=== PATIENT | male | born 1935 | race Native Hawaiian/Other Pacific Islander ===

== ENCOUNTER 2016-04-13 19:16 | Inpatient (IN) | payer OTHER ==
[~2016-04-13] VITALS: Ht 185.4 cm; Wt 77.1 kg
[~2016-04-13 19:16] MED LIST: ASPIRIN81 M1 PO; BENICAR20 MG PO; CEFUROXIME500 MG OR; CRESTOR20 MG PO; FOSI20TA2 PO; LEVAQUIN750 MG OR; METO50TA63 PO; VITAMIN D1000 UNI1 PO
[2016-04-13 19:22] VITALS: BP 185/90; TEMP 97.9
[2016-04-13 20:17] LABS: PLATELET COUNT 195 K/uL (142-355)
[2016-04-13 20:25] LABS: POTASSIUM 3.2 mmol/L (3.6-5.2); SODIUM 135 mmol/L (136-145)
[2016-04-13 22:15] VITALS: BP 172/87
[2016-04-13 23:39] VITALS: BP 188/78; TEMP 97.8; Ht 185.4 cm; Wt 77.1 kg
[2016-04-14] VITALS: BP 160/84; TEMP 97.7
[2016-04-14 03:33] LABS: PLATELET COUNT 174 K/uL (142-355)
[2016-04-14 04:00] VITALS: BP 177/86; TEMP 97.8
--- NOTE | 2016-04-14 07:12 | NUR ---
04/14/16 0655 PT C/O OF SHARP PAIN IN LEFT CHEST AREA RATED 6 ON SCALE 1- 10.V/S 161/77 67.RESP HERE TO DO EKG.MORPHINE 2MG SIVP GIVEN.CC 04/14/[address] GAONA NOTIFIED OF PT C/O OF CHEST PAIN AND EKG IS ABOUT THE SAME ON ADMISSION.NO NEW ORDERS .CC
[2016-04-14 07:25] VITALS: BP 168/81; TEMP 97.6
--- NOTE | 2016-04-14 07:25 | NUR ---
04/14/16 6793 PT STATES HIS PAIN IS GONE NAD NOTED.TOLD PT TO CALL IF HE HAS ANY FURTHER PAIN OR DISCOMFORT.PT VERBALIZED UNDERSTANDING.CC
[2016-04-14 12:00] VITALS: BP 158/74; TEMP 97.6
[2016-04-14 16:29] VITALS: BP 157/74; TEMP 98.6
[2016-04-14 20:00] VITALS: BP 138/77; TEMP 98.6
--- NOTE | 2016-04-14 20:16 | NUR ---
04/14/162009 FAMILY PRESENT IN ROOM NO C/O VOICED.CC
[2016-04-15] VITALS: BP 122/74; TEMP 98.1
[2016-04-15 04:00] VITALS: BP 157/80; TEMP 98.5
[2016-04-15 06:16] LABS: POTASSIUM 3.5 mmol/L (3.6-5.2)
[2016-04-15 06:19] LABS: PLATELET COUNT 176 K/uL (142-355)
[2016-04-15 08:00] VITALS: BP 162/60; TEMP 98.2
[2016-04-15 12:00] VITALS: BP 159/79; TEMP 98.7
[2016-04-15 16:00] VITALS: BP 158/76; TEMP 98.4
[2016-04-15 20:00] VITALS: BP 169/73; TEMP 98.2
[2016-04-16] VITALS: BP 156/78; TEMP 98.2
[2016-04-16 04:00] VITALS: BP 178/82; TEMP 98.1
[2016-04-16 08:00] VITALS: BP 160/80; TEMP 98
[2016-04-16 08:23] LABS: POTASSIUM 3.8 mmol/L (3.6-5.2)
[2016-04-16 08:45] LABS: PLATELET COUNT 193 K/uL (142-355)
[2016-04-16 12:02] VITALS: BP 177/85; TEMP 98.1
--- NOTE | 2016-04-16 12:48 | NUR ---
D/C INSTRUCTIONS GIVEN TO PT AND HE VERBALIZES UNDERSTANDING. PTS GRANDDAUGHTER HERE TO GET PT. PT OUT VIA W/C PER NURSING STUDENTS WITH NAD.
== END 2016-04-16 13:00 | disposition home or self-care (01) | DRG 562 ==
LOC: ED 19:16 → MED/SURG 21:45
PROVIDERS: Emergency Medicine; ADMIT Family Medicine
DX: S29.011A Strain of muscle and tendon of front wall of thorax, initial encounter (principal); J18.1 Lobar pneumonia, unspecified organism; R07.1 Chest pain on breathing; I10 Essential (primary) hypertension; J44.9 Chronic obstructive pulmonary disease, unspecified; K21.9 Gastro-esophageal reflux disease without esophagitis; N18.3 Chronic kidney disease, stage 3 (moderate); N20.0 Calculus of kidney
CPT/HCPCS: 36415; 80048; 80053; 81000; 84484; 85027; 93005; 94640; 94664; 94760; 96367; 96372; 96375; 99283; J1650; J2270

== ENCOUNTER 2016-06-22 13:38 | Observation (INO) | payer OTHER ==
[~2016-06-22] VITALS: Ht 185.4 cm; Wt 74.0 kg
[2016-06-22 13:50] VITALS: BP 188/85; TEMP 98.1
[2016-06-22 15:23] LABS: PLATELET COUNT 245 K/uL (142-355)
[2016-06-22 15:52] LABS: POTASSIUM 3.8 mmol/L (3.6-5.2); SODIUM 138 mmol/L (136-145)
[2016-06-22 16:50] VITALS: BP 174/76
[2016-06-22 17:00] VITALS: BP 162/68
[2016-06-22 18:00] VITALS: BP 161/77
[2016-06-22 19:30] VITALS: BP 133/90; TEMP 98
[2016-06-22 22:22] VITALS: BP 152/79; TEMP 98.3; Ht 185.4 cm; Wt 74.0 kg
[2016-06-23 00:20] VITALS: BP 134/65; TEMP 98
[2016-06-23 04:00] VITALS: BP 129/69; TEMP 98.1
[2016-06-23 05:20] LABS: PLATELET COUNT 208 K/uL (142-355)
[2016-06-23 05:43] LABS: POTASSIUM 3.8 mmol/L (3.6-5.2)
[2016-06-23 08:13] VITALS: BP 171/79; TEMP 98.1
[2016-06-23 12:00] VITALS: BP 118/77; BP 133/82; TEMP 98; TEMP 98.3
[2016-06-23 16:00] VITALS: BP 179/89; TEMP 98.5
--- NOTE | 2016-06-23 18:03 | NUR ---
1800 PT LEFT VIA WC WITH FAMILY. NO ACUTE DISTRESS NOTED.
== END 2016-06-23 18:03 | disposition home or self-care (01) ==
LOC: ED 13:38 → MED/SURG 19:47
PROVIDERS: Specialist; ADMIT Emergency Medicine
DX: G25.2 Other specified forms of tremor (principal); E86.0 Dehydration; I25.10 Atherosclerotic heart disease of native coronary artery without angina pectoris; J44.9 Chronic obstructive pulmonary disease, unspecified; I13.10 Hypertensive heart and chronic kidney disease without heart failure, with stage 1 through stage 4 chronic kidney disease, or unspecified chronic kidney disease; N18.3 Chronic kidney disease, stage 3 (moderate); R53.1 Weakness; F41.8 Other specified anxiety disorders; R07.89 Other chest pain; R42 Dizziness and giddiness
CPT/HCPCS: 36415; 36600; 80053; 81000; 82550; 82553; 82805; 83735; 84100; 84484; 85027; 85379; 85610; 85730; 93005; 96365; 96366; 96372; 99220; 99284; G0378; J1650; J1720; J3411; J3475; J3490

== ENCOUNTER 2017-03-11 17:54 | Emergency (ER) | payer OTHER ==
[~2017-03-11] VITALS: Ht 175.3 cm; Wt 75.8 kg
[2017-03-11 22:50] LABS: PLATELET COUNT 196 K/uL (142-355)
[2017-03-12 00:35] LABS: POTASSIUM 3.6 mmol/L (3.6-5.2)
[2017-03-12 01:25] VITALS: BP 164/77; TEMP 98.6
== END 2017-03-12 01:30 | disposition home or self-care (01) ==
LOC: ED 17:54
PROVIDERS: Specialist
DX: E86.9 Volume depletion, unspecified (principal); J11.1 Influenza due to unidentified influenza virus with other respiratory manifestations
CPT/HCPCS: 36415; 80053; 85027; 87804; 96365; 99284; J1720; J3411; J3475; J3490

== ENCOUNTER 2018-01-28 16:01 | Outpatient (CLI) | payer OTHER ==
[2018-01-28 16:30] LABS: PLATELET COUNT 205 K/uL (142-355)
[2018-01-28 16:38] LABS: POTASSIUM 2.8 mmol/L (3.6-5.2)
== END 2018-01-28 22:04 | disposition home or self-care (01) ==
LOC: LABW 16:01
PROVIDERS: Nurse Practitioner Family
DX: R21 Rash and other nonspecific skin eruption (principal)
CPT/HCPCS: 36415; 80053; 84630; 85027

== ENCOUNTER 2018-01-31 07:13 | Outpatient (CLI) | payer OTHER ==
[2018-01-31 08:21] LABS: POTASSIUM 3.3 mmol/L (3.6-5.2)
== END 2018-01-31 19:52 | disposition home or self-care (01) ==
LOC: LABW 07:13
PROVIDERS: Internal Medicine Cardiovascular Disease
DX: R21 Rash and other nonspecific skin eruption (principal); Z79.899 Other long term (current) drug therapy
CPT/HCPCS: 36415; 80048; 82943

== ENCOUNTER 2018-02-05 13:56 | Outpatient (CLI) | payer OTHER ==
[2018-02-05 14:24] LABS: POTASSIUM 3.6 mmol/L (3.6-5.2)
== END 2018-02-05 19:28 | disposition home or self-care (01) ==
LOC: LABW 13:56
PROVIDERS: Internal Medicine Cardiovascular Disease
DX: Z79.899 Other long term (current) drug therapy (principal)
CPT/HCPCS: 36415; 80048

== ENCOUNTER 2018-04-29 12:20 | Outpatient (CLI) | payer OTHER ==
[2018-04-29 12:58] LABS: PLATELET COUNT 206 K/uL (142-355)
[2018-04-29 13:05] LABS: POTASSIUM 4.9 mmol/L (3.6-5.2)
== END 2018-04-29 19:40 | disposition home or self-care (01) ==
LOC: LABW 12:20
PROVIDERS: Internal Medicine
DX: N18.4 Chronic kidney disease, stage 4 (severe) (principal)
CPT/HCPCS: 36415; 80053; 81000; 82043; 82306; 82330; 82570; 83735; 83970; 84100; 84155; 85027

== ENCOUNTER 2018-04-29 20:06 | Emergency (ER) | payer OTHER ==
[~2018-04-29] VITALS: Ht 175.3 cm; Wt 80.7 kg
[2018-04-29 22:01] VITALS: BP 138/76; TEMP 97.8
== END 2018-04-29 21:55 | disposition home or self-care (01) ==
LOC: ED 20:06
DX: E86.0 Dehydration (principal); N18.9 Chronic kidney disease, unspecified; R53.1 Weakness; R06.02 Shortness of breath; R42 Dizziness and giddiness
CPT/HCPCS: 36415; 93005; 96360; 99284

== ENCOUNTER 2018-06-26 09:46 | Outpatient (CLI) | payer OTHER | END 2018-06-26 23:10 | disposition home or self-care (01) | LOC: CT 09:46 | DX: R51 Headache (principal); I35.8 Other nonrheumatic aortic valve disorders | CPT/HCPCS: 93306 ==

== ENCOUNTER 2020-10-12 15:45 | Emergency (ER) | payer OTHER ==
[~2020-10-12] VITALS: Ht 182.9 cm; Wt 68.0 kg
[2020-10-12 15:55] VITALS: BP 135/56; TEMP 98.3
== END 2020-10-12 19:04 | disposition home or self-care (01) ==
LOC: ED 15:45
DX: R42 Dizziness and giddiness (principal); Z53.21 Procedure and treatment not carried out due to patient leaving prior to being seen by health care provider
CPT/HCPCS: 99281

== ENCOUNTER 2021-05-04 12:19 | Emergency (ER) | payer OTHER ==
[~2021-05-04] VITALS: Ht 182.9 cm; Wt 65.8 kg
[2021-05-04 12:34] LABS: PLATELET COUNT 243 K/uL (142-355)
[2021-05-04 16:21] VITALS: BP 137/61; TEMP 98.8
== END 2021-05-04 16:21 | disposition home or self-care (01) ==
LOC: ED 12:19
PROVIDERS: Emergency Medicine
DX: R42 Dizziness and giddiness (principal); I95.1 Orthostatic hypotension; Z91.81 History of falling; M16.0 Bilateral primary osteoarthritis of hip; W18.39XA Other fall on same level, initial encounter; Y92.89 Other specified places as the place of occurrence of the external cause
CPT/HCPCS: 80053; 82550; 84484; 85027; 93005; 96360; 99284

== ENCOUNTER 2021-08-11 00:46 | Observation (INO) | payer OTHER ==
[~2021-08-11] VITALS: Ht 185.4 cm; Wt 73.0 kg
[2021-08-11] VITALS (7 sets, daily range): BP systolic 136–168; BP diastolic 50–89; TEMP 97.8–98.8; Ht 185.4 cm; Wt 73.0 kg
[2021-08-11 01:21] LABS: PLATELET COUNT 258 K/uL (142-355)
[2021-08-11 01:31] LABS: POTASSIUM 3.9 mmol/L (3.6-5.2)
[2021-08-11 06:51] LABS: POTASSIUM 3.8 mmol/L (3.6-5.2)
[2021-08-11] MEDS ORDERED: VITAMIN D325 MCG PO (08:49)
[2021-08-11] MEDS ORDERED: OLMESARTAN MEDO20 MG PO (08:54)
[2021-08-11] MEDS ORDERED: ROSUVASTATIN CA40 MG PO (08:56)
[2021-08-11] MEDS ORDERED: FAMOTIDINE40 MG PO (08:57)
[2021-08-11] MEDS ORDERED: TIZANIDINE HYDRO4 M1 PO (08:58)
[2021-08-11] MEDS ORDERED: EUTHYROX50 MCG PO (08:59)
[2021-08-11] MEDS ORDERED: MEGESTROL AC40 MG PO (09:03)
[2021-08-11] MEDS ORDERED: MECLIZINE25 MG PO (09:05)
[2021-08-11] MEDS ORDERED: FUROSEMIDE20 MG PO (09:05)
[2021-08-11] MEDS ORDERED: SERTRALINE HYD100 MG PO (09:08)
[2021-08-11] MEDS ORDERED: ALPR0.5T24 PO (09:10)
[2021-08-12 04:00] VITALS: BP 137/58; TEMP 98.3
[2021-08-12 05:00] LABS: PLATELET COUNT 208 K/uL (142-355)
[2021-08-12 05:13] LABS: POTASSIUM 3.8 mmol/L (3.6-5.2)
[2021-08-12 08:00] VITALS: BP 135/65; TEMP 99.4
[2021-08-12 12:00] VITALS: BP 109/39; TEMP 98.6
[2021-08-12 16:00] VITALS: BP 123/51; TEMP 98.7
[2021-08-12 20:00] VITALS: BP 132/53; TEMP 98.8
[2021-08-13] VITALS: BP 120/45; TEMP 98.7
[2021-08-13 04:00] VITALS: BP 151/71; TEMP 99.3
[2021-08-13 08:00] VITALS: BP 144/63; TEMP 97.9
[2021-08-13 11:39] VITALS: BP 117/67; TEMP 98.8
[2021-08-13 15:45] VITALS: BP 167/71; TEMP 98.7
[2021-08-13 19:28] VITALS: BP 148/63; TEMP 97.9
[2021-08-14] VITALS: BP 143/71; TEMP 97.5
[2021-08-14 04:00] VITALS: BP 96/36; TEMP 97.7
[2021-08-14 08:00] VITALS: BP 120/63; TEMP 98
== END 2021-08-14 12:15 | disposition home health service (06) ==
LOC: ED 00:46 → MED/SURG 03:00
PROVIDERS: ADMIT Emergency Medicine; ATTEND Internal Medicine
DX: N17.8 Other acute kidney failure (principal); F41.8 Other specified anxiety disorders; G25.2 Other specified forms of tremor; J44.9 Chronic obstructive pulmonary disease, unspecified; I25.10 Atherosclerotic heart disease of native coronary artery without angina pectoris; D64.89 Other specified anemias; I12.9 Hypertensive chronic kidney disease with stage 1 through stage 4 chronic kidney disease, or unspecified chronic kidney disease; N18.30 Chronic kidney disease, stage 3 unspecified; E03.8 Other specified hypothyroidism; E55.9 Vitamin D deficiency, unspecified
CPT/HCPCS: 36415; 80048; 80053; 83605; 84484; 85027; 87635; 93005; 96360; 96361; 96365; 96374; 99220; 99284; G0378; J2060; U0003

== ENCOUNTER 2022-05-23 19:58 | Emergency (ER) | payer OTHER ==
[~2022-05-23 19:58] MED LIST changes: +ALPR0.5T24 PO; +EUTHYROX50 MCG PO; +FAMOTIDINE40 MG PO; +FUROSEMIDE20 MG PO; +MECLIZINE25 MG PO; +MEGESTROL AC40 MG PO; +OLMESARTAN MEDO20 MG PO; +ROSUVASTATIN CA40 MG PO; +SERTRALINE HYD100 MG PO; +TIZANIDINE HYDRO4 M1 PO; +VITAMIN D325 MCG PO
== END 2022-05-23 20:35 | disposition left against medical advice (07) ==
LOC: ED 19:58
DX: Z53.21 Procedure and treatment not carried out due to patient leaving prior to being seen by health care provider (principal)
CPT/HCPCS: 99281

== ENCOUNTER 2022-08-31 12:26 | Outpatient (CLI) | payer OTHER ==
[2022-08-31 12:58] LABS: PLATELET COUNT 219 K/uL (142-355)
[2022-08-31 13:28] LABS: POTASSIUM 3.8 mmol/L (3.6-5.2)
== END 2022-08-31 18:58 | disposition home or self-care (01) ==
LOC: LABW 12:26
PROVIDERS: ATTEND Nurse Practitioner
DX: D64.9 Anemia, unspecified (principal); E83.42 Hypomagnesemia; R53.82 Chronic fatigue, unspecified
CPT/HCPCS: 36415; 80053; 82728; 83540; 83550; 83735; 84439; 84443; 84481; 85027

== ENCOUNTER 2022-09-11 23:37 | Emergency (ER) | payer OTHER ==
[~2022-09-11] VITALS: Ht 185.4 cm; Wt 60.8 kg
[2022-09-12 00:53] LABS: POTASSIUM 3.9 mmol/L (3.6-5.2)
[2022-09-12 00:57] LABS: PLATELET COUNT 236 K/uL (142-355)
[2022-09-12 02:15] VITALS: BP 126/72
== END 2022-09-12 02:15 | disposition home or self-care (01) ==
LOC: ED 23:37
PROVIDERS: Family Medicine
DX: D63.8 Anemia in other chronic diseases classified elsewhere (principal); R42 Dizziness and giddiness; R53.1 Weakness; I44.7 Left bundle-branch block, unspecified
CPT/HCPCS: 36415; 80053; 85027; 93005; 99283